=== PATIENT | female | born 1985 | race Asian ===

== ENCOUNTER 2018-04-23 17:51 | Outpatient (CLI) | payer OTHER | END 2018-04-23 22:15 | disposition home or self-care (01) | LOC: OBT 17:51 → L-D 17:53 → OBT 22:15 | DX: O26.893 Other specified pregnancy related conditions, third trimester (principal); Z3A.37 37 weeks gestation of pregnancy; R50.9 Fever, unspecified | CPT/HCPCS: 76815; 76817; 76818 ==

== ENCOUNTER 2018-05-05 15:58 | Outpatient (CLI) | payer OTHER | END 2018-05-05 21:25 | disposition home or self-care (01) | LOC: OBT 15:58 → L-D 15:59 → OBT 21:25 | DX: O24.415 Gestational diabetes mellitus in pregnancy, controlled by oral hypoglycemic drugs (principal); Z3A.38 38 weeks gestation of pregnancy | CPT/HCPCS: 76815; 76818 ==

== ENCOUNTER 2018-05-10 03:13 | Inpatient (IN) | payer OTHER ==
[2018-05-10] MEDS ORDERED: LACTATED RINGER'S 1,000 ML IV ×2 (03:58→04:26)
[2018-05-10] MEDS ORDERED: MISOPROSTOL 200 MCG TAB PR ×2 (04:00→13:00)
[2018-05-10] MEDS ORDERED: CARBOPROST 250 MCG INJ IM ×2 (04:00→13:00)
[2018-05-10] MEDS ORDERED: LIDOCAINE 1% (MPF) 30 ML INJ INJ (04:00)
[2018-05-10] MEDS ORDERED: BUTORPHANOL 2 MG INJ IV (04:00)
[2018-05-10] MEDS ORDERED: OXYTOCIN 30 UNITS/LR 500 ML IV ×3 (04:00→13:00)
[2018-05-10] MEDS: LACTATED RINGER'S 1,000 ML IV* ×2 (04:43→06:42)
[2018-05-10 05:17] LABS: ADD MAN DIFF? NO
[2018-05-10 05:23] LABS: BASOPHILS % 0.2 % (0.0-2.0); EOSINOPHILS % 0.2 % (0.0-7.0); HEMATOCRIT 35.7 % (37.0-47.0); HEMOGLOBIN 11.9 g/dl (12.0-16.0); LYMPHOCYTES # 1.9 10^3/ul (0.8-2.9); LYMPHOCYTES % 14.8 % (15.0-51.0); MEAN CORPUSCULAR HEMOGLOBIN 30.2 pg (29.0-33.0); MEAN CORPUSCULAR HGB CONC 33.3 g/dl (32.0-37.0); MEAN CORPUSCULAR VOLUME 90.6 fl (82.0-101.0); MEAN PLATELET VOLUME 11.5 fl (7.4-10.4); MONOCYTE # 0.6 10^3/ul (0.3-0.9); MONOCYTES % 4.5 % (0.0-11.0); NEUTROPHIL # 10.2 10^3/ul (1.6-7.5); NEUTROPHILS % 78.4 % (39.0-77.0); PLATELET COUNT 151 10^3/UL (140-415); RED BLOOD COUNT 3.94 10^6/ul (4.20-5.40); RED CELL DISTRIBUTION WIDTH 14.2 % (11.5-14.5)
[2018-05-10] MEDS: DEXTROSE 5%-LR 1,000 ML IV (05:27)
[2018-05-10] MEDS: AMPICILLIN 2 GM/NS (PMX) 100 ML IV (05:27)
[2018-05-10 05:45] LABS: PROTIME 12.2 Sec (11.9-14.9)
[2018-05-10 05:46] LABS: PARTIAL THROMBOPLASTIN TIME 27.5 Sec (25.0-35.0)
[2018-05-10 06:21] LABS: HEPATITIS B SURFACE ANTIGEN NEGATIVE (NEGATIVE)
[2018-05-10] MEDS ORDERED: CEFAZOLIN 2 GM/50 ML (PMX) 50 ML IVPB (06:48)
[2018-05-10] MEDS ORDERED: OXYTOCIN 10 UNIT INJ ×3 (07:00→08:39)
[2018-05-10] MEDS: METOCLOPRAMIDE 10 MG INJ IV (07:24)
[2018-05-10] MEDS: FAMOTIDINE 20 MG INJ IV (07:24)
[2018-05-10] MEDS ORDERED: morphine SULFATE/PF (10 MG/10 ML) INJ (07:56)
[2018-05-10] MEDS ORDERED: OXYTOCIN 30 UNITS/LR 0 ML IV (07:56)
[2018-05-10] MEDS ORDERED: BUPIVACAINE 0.75%/DEXT (SPINAL) 2 ML INJ (07:59)
[2018-05-10] MEDS: AMPICILLIN 1 GM/NS (PMX) 50 ML IV (08:00)
[2018-05-10] MEDS: CEFAZOLIN 2 GM/50 ML (PMX) 50 ML IVPB (08:01)
[2018-05-10] MEDS ORDERED: EPHEDrine 50 MG INJ (08:38)
[2018-05-10] MEDS ORDERED: MIDAZOLAM 1 MG/ML 2 ML INJ (08:46)
[2018-05-10] MEDS: METHYLERGONOVINE 0.2 MG INJ IM (08:50)
[2018-05-10] MEDS ORDERED: ONDANSETRON 4 MG INJ IV (09:30)
[2018-05-10] MEDS ORDERED: EPHEDrine SULFATE 50 MG/5 ML SYG IV (09:30)
[2018-05-10] MEDS ORDERED: DIPHENHYDRAMINE 50 MG INJ IV (09:30)
[2018-05-10] MEDS ORDERED: morphine 2 MG INJ IV ×2 (09:30)
[2018-05-10] MEDS ORDERED: NALOXONE (0.4 MG/ML) INJ IV (09:30)
[2018-05-10] MEDS: OXYTOCIN 30 UNITS/LR 500 ML IV ×2 (10:51→13:31)
[2018-05-10] MEDS ORDERED: METHYLERGONOVINE 0.2 MG INJ IM (13:00)
[2018-05-10] MEDS: IBUPROFEN 800 MG TAB PO ×2 (14:00→22:00)
[2018-05-10] MEDS: LACTATED RINGER'S 1,000 ML IV ×2 (20:32→22:43)
[2018-05-10] MEDS: SENNA/DOCUSATE NA (8.6MG/50MG) TAB PO (21:00)
[2018-05-10] MEDS: KETOROLAC 30 MG INJ IV (22:42)
[2018-05-11 07:20] LABS: ADD MAN DIFF? NO
[2018-05-11 07:24] LABS: WHITE BLOOD COUNT 19.6 10^3/ul (4.8-10.8)
[2018-05-11 07:24] LABS: BASOPHILS % 0.1 % (0.0-2.0); EOSINOPHILS % 0.2 % (0.0-7.0); HEMATOCRIT 28.9 % (37.0-47.0); HEMOGLOBIN 9.8 g/dl (12.0-16.0); LYMPHOCYTES # 1.2 10^3/ul (0.8-2.9); LYMPHOCYTES % 6.3 % (15.0-51.0); MEAN CORPUSCULAR HEMOGLOBIN 30.6 pg (29.0-33.0); MEAN CORPUSCULAR HGB CONC 33.9 g/dl (32.0-37.0); MEAN CORPUSCULAR VOLUME 90.3 fl (82.0-101.0); MEAN PLATELET VOLUME 11.6 fl (7.4-10.4); MONOCYTE # 0.8 10^3/ul (0.3-0.9); MONOCYTES % 3.8 % (0.0-11.0); NEUTROPHIL # 17.3 10^3/ul (1.6-7.5); NEUTROPHILS % 88.6 % (39.0-77.0); RED CELL DISTRIBUTION WIDTH 14.1 % (11.5-14.5)
[2018-05-11 07:31] LABS: PLATELET COUNT 117 10^3/UL (140-415); POSITIVE DIFF @See below
[2018-05-11] MEDS: OXYCODONE/ACETAMINOPHEN (5/325) TAB PO ×2 (09:41→18:46)
[2018-05-11] MEDS: SENNA/DOCUSATE NA (8.6MG/50MG) TAB PO ×2 (09:41→23:24)
[2018-05-11] MEDS: LANOLIN 7 GM TUBE TOP (09:41)
[2018-05-11] MEDS: IBUPROFEN 800 MG TAB PO ×3 (14:45→23:27)
[2018-05-11 17:33] LABS: RAPID PLASMA REAGIN NONREACTIVE (NR)
[2018-05-11] MEDS: ACCU-CHEK XX (21:00)
[2018-05-12] MEDS: LEVOTHYROXINE 125 MCG TAB PO (06:16)
[2018-05-12] MEDS: IBUPROFEN 800 MG TAB PO ×3 (06:16→21:51)
[2018-05-12] MEDS: ACCU-CHEK XX ×5 (08:15→21:00)
[2018-05-12 08:28] LABS: ADD MAN DIFF? NO
[2018-05-12] MEDS: OXYCODONE/ACETAMINOPHEN (5/325) TAB PO ×2 (08:31→20:09)
[2018-05-12] MEDS: SENNA/DOCUSATE NA (8.6MG/50MG) TAB PO ×2 (08:31→21:49)
[2018-05-12 08:32] LABS: WHITE BLOOD COUNT 13.2 10^3/ul (4.8-10.8)
[2018-05-12 08:32] LABS: BASOPHILS % 0.2 % (0.0-2.0); EOSINOPHILS # 0.1 10^3/ul (0.0-0.5); EOSINOPHILS % 0.4 % (0.0-7.0); HEMATOCRIT 27.5 % (37.0-47.0); HEMOGLOBIN 9.2 g/dl (12.0-16.0); LYMPHOCYTES # 1.3 10^3/ul (0.8-2.9); LYMPHOCYTES % 9.7 % (15.0-51.0); MEAN CORPUSCULAR HEMOGLOBIN 30.9 pg (29.0-33.0); MEAN CORPUSCULAR HGB CONC 33.5 g/dl (32.0-37.0); MEAN CORPUSCULAR VOLUME 92.3 fl (82.0-101.0); MEAN PLATELET VOLUME 11.4 fl (7.4-10.4); MONOCYTE # 0.5 10^3/ul (0.3-0.9); MONOCYTES % 3.8 % (0.0-11.0); NEUTROPHIL # 11.1 10^3/ul (1.6-7.5); NEUTROPHILS % 84.5 % (39.0-77.0); PLATELET COUNT 115 10^3/UL (140-415); RED BLOOD COUNT 2.98 10^6/ul (4.20-5.40); RED CELL DISTRIBUTION WIDTH 14.3 % (11.5-14.5)
[2018-05-12] MEDS: morphine SULFATE/PF (10 MG/10 ML) INJ SPINAL (08:33)
[2018-05-12] MEDS ORDERED: GLUCAGON 1 MG INJ IM (18:30)
[2018-05-12] MEDS ORDERED: GLUCOSE GEL 15 GRAM TUBE BUCCAL (18:30)
[2018-05-12] MEDS ORDERED: DEXTROSE 50% 50 ML SYRINGE IV ×2 (18:30)
[2018-05-12] MEDS ORDERED: GLUCOSE GEL 15 GRAM TUBE PO ×2 (18:30)
[2018-05-13] MEDS: LEVOTHYROXINE 125 MCG TAB PO (06:09)
[2018-05-13] MEDS: IBUPROFEN 800 MG TAB PO ×3 (06:09→22:51)
[2018-05-13] MEDS: ACCU-CHEK XX ×5 (07:35→21:00)
[2018-05-13] MEDS: SENNA/DOCUSATE NA (8.6MG/50MG) TAB PO ×2 (08:54→20:57)
[2018-05-13 10:50] LABS: IRON 29 ug/dl (35-150)
[2018-05-13 10:55] LABS: ALANINE AMINOTRANSFERASE 21 IU/L (13-69); ALBUMIN 3.1 g/dl (3.3-4.9); ALBUMIN/GLOBULIN RATIO 0.83; ALKALINE PHOSPHATASE 100 IU/L (42-121); ANION GAP 11 (8-16); ASPARTATE AMINO TRANSFERASE 43 IU/L (15-46); BLOOD UREA NITROGEN 11 mg/dl (7-20); CALCIUM 8.8 mg/dl (8.4-10.2); CARBON DIOXIDE 21 mmol/L (21-31); CHLORIDE 114 mmol/L (97-110); CREATININE 0.73 mg/dl (0.44-1.00); GLUCOSE 87 mg/dl (70-220); POTASSIUM 4.7 mmol/L (3.5-5.1); SODIUM 141 mmol/L (135-144); TOTAL PROTEIN 6.8 g/dl (6.1-8.1)
[2018-05-13 10:59] LABS: % IRON SATURATION 8 % SAT (22-52); TOTAL IRON BINDING CAPACITY 365 ug/dl (241-421)
[2018-05-13 11:21] LABS: FERRITIN 85.1 ng/ml (6.2-137.0)
[2018-05-13 11:34] LABS: HEPATITIS C VIRAL ANTIBODY NEGATIVE (NEGATIVE)
[2018-05-13 14:06] LABS: HEMOGLOBIN A1C 5.9 % (0-5.9)
[2018-05-13] MEDS: ASCORBIC ACID 500 MG TAB PO (15:23)
[2018-05-13] MEDS: FERROUS FUMARATE (SR) TAB PO (15:23)
[2018-05-13] MEDS: OXYCODONE/ACETAMINOPHEN (5/325) TAB PO (15:27)
[2018-05-13] MEDS: SOD FERRIC GLUC COMPLX 125 MG in SOD CHLORIDE 0.9% 100 ML IVPB (16:47)
[2018-05-13] MEDS: metFORMIN 500 MG TAB PO (18:11)
[2018-05-14] MEDS: IBUPROFEN 800 MG TAB PO ×2 (06:00→14:00)
[2018-05-14] MEDS: LEVOTHYROXINE 125 MCG TAB PO (07:00)
[2018-05-14] MEDS: ACCU-CHEK XX ×3 (07:53→17:17)
[2018-05-14] MEDS: SENNA/DOCUSATE NA (8.6MG/50MG) TAB PO (08:47)
[2018-05-14] MEDS: ASCORBIC ACID 500 MG TAB PO (08:48)
[2018-05-14] MEDS: FERROUS FUMARATE (SR) TAB PO (08:48)
[2018-05-14] MEDS: OXYCODONE/ACETAMINOPHEN (5/325) TAB PO ×2 (08:48→17:31)
[2018-05-14] MEDS: DIPHTH/TET/ACEL PERTUSS (ADULT) 0.5 ML VIAL IM* (08:54)
[2018-05-14] MEDS: SOD FERRIC GLUC COMPLX 125 MG in SOD CHLORIDE 0.9% 100 ML IVPB (17:31)
[2018-05-14] MEDS: metFORMIN 500 MG TAB PO (18:05)
== END 2018-05-14 22:00 | disposition home or self-care (01) | DRG 766 ==
LOC: OBT 03:13 → L-D 03:14 → OBT 04:02 → L-D 04:04 → PP1 12:03
PROVIDERS: Obstetrics & Gynecology
PROC: 10D00Z1 Extraction of Products of Conception, Low, Open Approach (ICD-10-PCS; principal; 2018-05-10 08:00)
DX: O24.429 Gestational diabetes mellitus in childbirth, unspecified control (principal); Z37.0 Single live birth; E03.9 Hypothyroidism, unspecified; Z3A.39 39 weeks gestation of pregnancy; O99.284 Endocrine, nutritional and metabolic diseases complicating childbirth; O99.02 Anemia complicating childbirth; D50.0 Iron deficiency anemia secondary to blood loss (chronic)
CPT/HCPCS: 36415; 76818; 80053; 82728; 82962; 83036; 83540; 84443; 85025; 85610; 85730; 86592; 86803; 86850; 86900; 86901; 87340; 88307; 90715; 99464

== ENCOUNTER 2018-11-16 23:29 | Emergency (ER) | payer OTHER ==
[2018-11-17] MEDS: SOD CHLORIDE 0.9% 1,000 ML IV ×2 (00:45→00:46)
[2018-11-17 00:57] LABS: ADD MAN DIFF? NO
[2018-11-17 00:59] LABS: BASOPHILS % 0.2 % (0.0-2.0); EOSINOPHILS % 0.2 % (0.0-7.0); HEMATOCRIT 37.8 % (37.0-47.0); HEMOGLOBIN 12.2 g/dl (12.0-16.0); LYMPHOCYTES # 1.7 10^3/ul (0.8-2.9); LYMPHOCYTES % 16.7 % (15.0-51.0); MEAN CORPUSCULAR HEMOGLOBIN 28.2 pg (29.0-33.0); MEAN CORPUSCULAR HGB CONC 32.3 g/dl (32.0-37.0); MEAN CORPUSCULAR VOLUME 87.3 fl (82.0-101.0); MEAN PLATELET VOLUME 11.8 fl (7.4-10.4); MONOCYTE # 0.6 10^3/ul (0.3-0.9); MONOCYTES % 5.8 % (0.0-11.0); NEUTROPHIL # 7.7 10^3/ul (1.6-7.5); NEUTROPHILS % 76.5 % (39.0-77.0); PLATELET COUNT 156 10^3/UL (140-415); RED BLOOD COUNT 4.33 10^6/ul (4.20-5.40); RED CELL DISTRIBUTION WIDTH 13.1 % (11.5-14.5)
[2018-11-17 00:59] LABS: WHITE BLOOD COUNT 10.1 10^3/ul (4.8-10.8)
[2018-11-17 01:13] LABS: UR BACTERIA FEW /HPF (NONE SEEN); UR MUCUS MANY /HPF (NONE SEEN); UR RBC > 182 /HPF (0-5); UR WBC 0 /HPF (0-5)
[2018-11-17 01:14] LABS: ADD UMIC YES; UR ASCORBIC ACID NEGATIVE (NEGATIVE); UR BILIRUBIN (Dip) NEGATIVE (NEGATIVE); UR BLOOD (Dip) 3+ mg/dL (NEGATIVE); UR CLARITY TURBID (CLEAR); UR COLOR AMBER (YELLOW); UR GLUCOSE (Dip) NEGATIVE (NEGATIVE); UR KETONES (Dip) TRACE mg/dL (NEGATIVE); UR LEUKOCYTE ESTERASE (Dip) NEGATIVE Leu/ul (NEGATIVE); UR NITRITE (Dip) NEGATIVE (NEGATIVE); UR SPECIFIC GRAVITY (Dip) 1.016 (1.003-1.030); UR TOTAL PROTEIN (Dip) 2+ mg/dl (NEGATIVE); UR UROBILINOGEN (Dip) NEGATIVE (NEGATIVE)
== END 2018-11-17 02:56 | disposition home or self-care (01) ==
LOC: FTE 23:29
DX: O20.9 Hemorrhage in early pregnancy, unspecified (principal); E03.9 Hypothyroidism, unspecified; O99.281 Endocrine, nutritional and metabolic diseases complicating pregnancy, first trimester; R10.2 Pelvic and perineal pain; Z3A.01 Less than 8 weeks gestation of pregnancy
CPT/HCPCS: 36415; 76801; 76817; 81001; 81025; 84702; 84703; 85025; 86900; 86901; 99285-25

== ENCOUNTER 2019-06-12 15:19 | Inpatient (IN) | payer OTHER ==
[2019-06-12 16:40] LABS: ADD MAN DIFF? NO
[2019-06-12 16:44] LABS: BASOPHILS % 0.2 % (0.0-2.0); EOSINOPHILS % 0.1 % (0.0-7.0); HEMATOCRIT 36.3 % (37.0-47.0); HEMOGLOBIN 11.6 g/dl (12.0-16.0); LYMPHOCYTES # 1.6 10^3/ul (0.8-2.9); LYMPHOCYTES % 17.2 % (15.0-51.0); MEAN CORPUSCULAR HEMOGLOBIN 27.8 pg (29.0-33.0); MEAN CORPUSCULAR VOLUME 86.8 fl (82.0-101.0); MEAN PLATELET VOLUME 11.5 fl (7.4-10.4); MONOCYTE # 0.7 10^3/ul (0.3-0.9); MONOCYTES % 7.3 % (0.0-11.0); NEUTROPHIL # 6.8 10^3/ul (1.6-7.5); NEUTROPHILS % 74.8 % (39.0-77.0); PLATELET COUNT 173 10^3/UL (140-415); RED BLOOD COUNT 4.18 10^6/ul (4.20-5.40); RED CELL DISTRIBUTION WIDTH 14.5 % (11.5-14.5)
[2019-06-12 16:44] LABS: WHITE BLOOD COUNT 9.1 10^3/ul (4.8-10.8)
[2019-06-12 17:02] LABS: ALANINE AMINOTRANSFERASE 19 IU/L (13-69); ALBUMIN 4.7 g/dl (3.3-4.9); ALBUMIN/GLOBULIN RATIO 1.02; ALKALINE PHOSPHATASE 75 IU/L (42-121); AMYLASE 150 U/L (11-123); ANION GAP 9 (5-13); ASPARTATE AMINO TRANSFERASE 23 IU/L (15-46); BILIRUBIN,INDIRECT 0.4 mg/dl (0-1.1); BILIRUBIN,TOTAL 0.4 mg/dl (0.2-1.3); BLOOD UREA NITROGEN 10 mg/dl (7-20); CALCIUM 9.3 mg/dl (8.4-10.2); CARBON DIOXIDE 19 mmol/L (21-31); CHLORIDE 110 mmol/L (97-110); CREATININE 0.78 mg/dl (0.44-1.00); Estimated GFR > 60 mL/min (>60); GLUCOSE 122 mg/dl (70-220); LIPASE 94 U/L (23-300); POTASSIUM 3.5 mmol/L (3.5-5.1); SODIUM 138 mmol/L (135-144); TOTAL PROTEIN 9.3 g/dl (6.1-8.1)
[2019-06-12 17:04] LABS: ADD UMIC NO; UR ASCORBIC ACID NEGATIVE (NEGATIVE); UR BILIRUBIN (Dip) NEGATIVE (NEGATIVE); UR BLOOD (Dip) NEGATIVE (NEGATIVE); UR CLARITY CLEAR (CLEAR); UR COLOR YELLOW (YELLOW); UR GLUCOSE (Dip) 1+ mg/dL (NEGATIVE); UR KETONES (Dip) NEGATIVE (NEGATIVE); UR LEUKOCYTE ESTERASE (Dip) NEGATIVE Leu/ul (NEGATIVE); UR NITRITE (Dip) NEGATIVE (NEGATIVE); UR SPECIFIC GRAVITY (Dip) 1.012 (1.003-1.030); UR TOTAL PROTEIN (Dip) NEGATIVE (NEGATIVE); UR UROBILINOGEN (Dip) NEGATIVE (NEGATIVE)
[2019-06-12] MEDS ORDERED: ACETAMINOPHEN 325 MG TAB PO (20:00)
[2019-06-12] MEDS ORDERED: ONDANSETRON 4 MG INJ IV (20:00)
[2019-06-12] MEDS: LACTATED RINGER'S 1,000 ML IV (23:34)
[2019-06-12 23:49] LABS: HEMATOCRIT 36.7 % (37.0-47.0); HEMOGLOBIN 11.7 g/dl (12.0-16.0)
[2019-06-13] MEDS: CEFAZOLIN 2 GM/50 ML (PMX) 50 ML IVPB (00:06)
[2019-06-13] MEDS ORDERED: FENTAnyl 50 MCG/ML VIAL (00:46)
[2019-06-13] MEDS ORDERED: morphine SULFATE/PF (10 MG/10 ML) INJ (00:46)
[2019-06-13] MEDS ORDERED: MIDAZOLAM 1 MG/ML 2 ML INJ (00:46)
[2019-06-13] MEDS ORDERED: ONDANSETRON 4 MG INJ (02:40)
[2019-06-13] MEDS ORDERED: ROCURONIUM 50 MG INJ (02:41)
[2019-06-13] MEDS ORDERED: LIDOCAINE 2% (SDV) 5 ML INJ (02:41)
[2019-06-13] MEDS ORDERED: GLYCOPYRROLATE 0.4 MG INJ (02:41)
[2019-06-13] MEDS ORDERED: NEOSTIGMINE 3 MG/3 ML SYRINGE (02:41)
[2019-06-13] MEDS ORDERED: PROPOFOL 20 ML (02:41)
[2019-06-13] MEDS ORDERED: MEPERIDINE 25 MG INJ (02:50)
[2019-06-13] MEDS: ONDANSETRON 4 MG INJ IV (02:57)
[2019-06-13] MEDS: MEPERIDINE 25 MG INJ IV (02:57)
[2019-06-13] MEDS ORDERED: KETOROLAC 30 MG INJ IV (03:00)
[2019-06-13] MEDS ORDERED: METOCLOPRAMIDE 10 MG INJ IV (03:00)
[2019-06-13] MEDS ORDERED: DIPHENHYDRAMINE 50 MG INJ IV (03:00)
[2019-06-13] MEDS ORDERED: HYDROmorphONE 1 MG/5 ML IV SYRINGE IV (03:00)
[2019-06-13] MEDS ORDERED: FENTAnyl 50 MCG/ML VIAL IV (03:00)
[2019-06-13] MEDS: HYDROmorphONE 1 MG/5 ML IV SYRINGE IV (03:19)
[2019-06-13] MEDS: HYDROCODONE/APAP (5/325) TAB PO (04:26)
[2019-06-13] MEDS: LACTATED RINGER'S 1,000 ML IV (04:26)
[2019-06-13 11:19] LABS: ADD MAN DIFF? NO
[2019-06-13 11:25] LABS: BASOPHILS % 0.1 % (0.0-2.0); EOSINOPHILS % 0.3 % (0.0-7.0); HEMATOCRIT 32.4 % (37.0-47.0); HEMOGLOBIN 10.1 g/dl (12.0-16.0); LYMPHOCYTES # 1.3 10^3/ul (0.8-2.9); LYMPHOCYTES % 16.5 % (15.0-51.0); MEAN CORPUSCULAR HEMOGLOBIN 27.4 pg (29.0-33.0); MEAN CORPUSCULAR HGB CONC 31.2 g/dl (32.0-37.0); MEAN PLATELET VOLUME 11.6 fl (7.4-10.4); MONOCYTE # 0.5 10^3/ul (0.3-0.9); MONOCYTES % 6.6 % (0.0-11.0); NEUTROPHILS % 76.1 % (39.0-77.0); PLATELET COUNT 144 10^3/UL (140-415); RED BLOOD COUNT 3.68 10^6/ul (4.20-5.40); RED CELL DISTRIBUTION WIDTH 14.5 % (11.5-14.5)
[2019-06-13 11:25] LABS: WHITE BLOOD COUNT 7.9 10^3/ul (4.8-10.8)
[2019-06-13] MEDS ORDERED: BISACODYL 10 MG SUPP PR (15:06)
[2019-06-13] MEDS: BISACODYL 10 MG SUPP PR (15:08)
== END 2019-06-13 18:55 | disposition home or self-care (01) | DRG 817 ==
LOC: FTE 15:19 → MS1 19:48
PROC: 0UB54ZZ Excision of Right Fallopian Tube, Percutaneous Endoscopic Approach (ICD-10-PCS; principal; 2019-06-13 01:01)
PROC: 10T24ZZ Resection of Products of Conception, Ectopic, Percutaneous Endoscopic Approach (ICD-10-PCS; 2019-06-13 01:01)
DX: O00.101 Right tubal pregnancy without intrauterine pregnancy (principal); K66.1 Hemoperitoneum; O99.281 Endocrine, nutritional and metabolic diseases complicating pregnancy, first trimester; E03.9 Hypothyroidism, unspecified; Z3A.00 Weeks of gestation of pregnancy not specified
CPT/HCPCS: 36415; 76801; 76817; 80053; 81003; 81025; 82150; 83690; 84702; 84703; 85014; 85018; 85025; 86850; 86900; 86901; 88305; 99285-25

== ENCOUNTER 2019-06-16 12:44 | Emergency (ER) | payer OTHER ==
[2019-06-16 14:31] LABS: URINE BLOOD (Dip) POC 2+ (NEGATIVE); URINE GLUCOSE (Dip) POC Negative (NEGATIVE); URINE KETONES (Dip) POC Negative (NEGATIVE); URINE LEUKOCYTE EST (Dip) POC Negative (NEGATIVE); URINE NITRITE (Dip) POC Negative (NEGATIVE); URINE TOTAL PROTEIN POC 1+ (NEGATIVE)
[2019-06-16] MEDS: SOD CHLORIDE 0.9% 1,000 ML IV ×2 (14:41→18:22)
[2019-06-16 14:48] LABS: ADD MAN DIFF? NO
[2019-06-16 14:50] LABS: WHITE BLOOD COUNT 8.4 10^3/ul (4.8-10.8)
[2019-06-16 14:50] LABS: BASOPHILS % 0.2 % (0.0-2.0); EOSINOPHILS % 0.1 % (0.0-7.0); HEMATOCRIT 32.3 % (37.0-47.0); HEMOGLOBIN 10.4 g/dl (12.0-16.0); LYMPHOCYTES # 1.2 10^3/ul (0.8-2.9); LYMPHOCYTES % 14.6 % (15.0-51.0); MEAN CORPUSCULAR HEMOGLOBIN 27.6 pg (29.0-33.0); MEAN CORPUSCULAR HGB CONC 32.2 g/dl (32.0-37.0); MEAN CORPUSCULAR VOLUME 85.7 fl (82.0-101.0); MEAN PLATELET VOLUME 11.5 fl (7.4-10.4); MONOCYTE # 0.5 10^3/ul (0.3-0.9); MONOCYTES % 6.1 % (0.0-11.0); NEUTROPHIL # 6.6 10^3/ul (1.6-7.5); NEUTROPHILS % 78.5 % (39.0-77.0); PLATELET COUNT 170 10^3/UL (140-415); RED BLOOD COUNT 3.77 10^6/ul (4.20-5.40); RED CELL DISTRIBUTION WIDTH 14.6 % (11.5-14.5)
[2019-06-16] MEDS: ONDANSETRON 4 MG INJ IV (14:55)
[2019-06-16] MEDS: morphine 2 MG INJ IV (14:56)
[2019-06-16 15:30] LABS: ALANINE AMINOTRANSFERASE 18 IU/L (13-69); ALBUMIN 4.1 g/dl (3.3-4.9); ALBUMIN/GLOBULIN RATIO 0.97; ALKALINE PHOSPHATASE 83 IU/L (42-121); ANION GAP 8 (5-13); ASPARTATE AMINO TRANSFERASE 22 IU/L (15-46); BILIRUBIN,INDIRECT 0.3 mg/dl (0-1.1); BILIRUBIN,TOTAL 0.3 mg/dl (0.2-1.3); BLOOD UREA NITROGEN 9 mg/dl (7-20); CALCIUM 8.8 mg/dl (8.4-10.2); CARBON DIOXIDE 20 mmol/L (21-31); CHLORIDE 111 mmol/L (97-110); CREATININE 0.72 mg/dl (0.44-1.00); Estimated GFR > 60 mL/min (>60); GLUCOSE 97 mg/dl (70-220); LIPASE 79 U/L (23-300); POTASSIUM 3.4 mmol/L (3.5-5.1); SODIUM 139 mmol/L (135-144); TOTAL PROTEIN 8.3 g/dl (6.1-8.1)
[2019-06-16] MEDS: POTASSIUM CHLORIDE (SR) 20 MEQ TAB PO (18:22)
== END 2019-06-16 19:37 | disposition home or self-care (01) ==
LOC: E/R 12:44
DX: G89.18 Other acute postprocedural pain (principal); E87.6 Hypokalemia; D64.9 Anemia, unspecified; E03.9 Hypothyroidism, unspecified; R10.2 Pelvic and perineal pain
CPT/HCPCS: 36415; 80053; 81003; 83690; 84702; 85025; 96374; 96375; 99284-25